=== PATIENT | male | born 1980 | race Caucasian/White ===

== ENCOUNTER 2019-02-07 19:11 | Emergency (ER) | payer MEDICARE ==
[~2019-02-07] VITALS: Ht 188 cm; Wt 111.3 kg
[2019-02-07 19:17] VITALS: Ht 188 cm; Wt 111.3 kg
[2019-02-07] MEDS ORDERED: VOLTAREN75 MG PO (20:43)
[2019-02-07] MEDS ORDERED: OMEPRAZOLE40 MG PO (20:43)
[2019-02-08 03:06] VITALS: BP 126/91
== END 2019-02-07 21:12 | disposition home or self-care (01) ==
LOC: D.ER 19:11
DX: S99.921A Unspecified injury of right foot, initial encounter (principal); W22.8XXA Striking against or struck by other objects, initial encounter; F17.210 Nicotine dependence, cigarettes, uncomplicated

== ENCOUNTER 2019-04-17 18:23 | Emergency (ER) | payer MEDICARE ==
[~2019-04-17] VITALS: Ht 188 cm; Wt 84.1 kg
[~2019-04-17 18:23] MED LIST: OMEPRAZOLE40 MG PO; VOLTAREN75 MG PO
[2019-04-17 19:09] VITALS: Ht 188 cm; Wt 84.1 kg
[2019-04-17 19:38] LABS: BASOPHILS 0.2 % (0-2); EOSINOPHILS 1.5 % (0-7); HEMOGLOBIN 17.5 g/dL (13.5-17.5); IMMATURE GRANULOCYTES 0.2 % (0-5); LYMPHOCYTES 40.4 % (15-50); MCH 31.1 pg (26.0-34.0); MCHC 35.7 g/dL (31.0-37.0); MONOCYTES 9.1 % (2-11); NEUTROPHILS 48.6 % (40-80); PLATELET COUNT 309 10x3/uL (130-400); RBC 5.63 10x6/uL (4.20-6.10); RDW 12.5 % (11.5-14.5); WBC 8.9 10x3/uL (4.8-10.8)
[2019-04-17 19:49] LABS: CALC OSMOLALITY 281 mosm/kg (275-300); CALCIUM 9.3 mg/dL (8.5-10.1); CARBON DIOXIDE 23.8 mmol/L (21.0-32.0); CHLORIDE - SERUM 105 mmol/L (98-107); CREATININE - SERUM 0.9 mg/dL (0.6-1.3); GLUCOSE 91 mg/dL (74-106); POTASSIUM - SERUM 4.3 mmol/L (3.5-5.1); SODIUM 141 mmol/L (136-145); UREA NITROGEN 15 mg/dL (7-18); eGFR NON AFRICAN AMERICAN > 90 mL/min (90-120)
[2019-04-17 19:53] LABS: ALBUMIN 3.8 g/dL (3.4-5.0); ALKALINE PHOSPHATASE 93 U/L (46-116); ALT (SGPT) 25 U/L (10-68); BILIRUBIN - TOTAL 0.46 mg/dL (0.2-1.3); MAGNESIUM - SERUM 2.1 mg/dL (1.8-2.4); PROTEIN - SERUM 7.3 g/dL (6.4-8.2)
[2019-04-17 20:15] LABS: APPEARANCE CLEAR (CLEAR); BILIRUBIN NEGATIVE (NEGATIVE); COLOR YELLOW (YELLOW); GLUCOSE NEGATIVE (NEGATIVE); KETONE NEGATIVE (NEGATIVE); NITRITE NEGATIVE (NEGATIVE); PROTEIN NEGATIVE (NEGATIVE); SPECIFIC GRAVITY 1.025 (1.005-1.020); UROBILINOGEN NORMAL (NORMAL)
[2019-04-17 20:25] LABS: UDS - AMPHET NEGATIVE QUAL (NEGATIVE); UDS - BARB NEGATIVE QUAL (NEGATIVE); UDS - BENZO NEGATIVE QUAL (NEGATIVE); UDS - COCAINE NEGATIVE QUAL (NEGATIVE); UDS - OPIATE NEGATIVE QUAL (NEGATIVE); UDS - PCP NEGATIVE QUAL (NEGATIVE); UDS - THC POSITIVE QUAL (NEGATIVE)
--- NOTE | 2019-04-17 20:47 | NUR ---
DR. DUPONT NOTIFIED AND SITTER ORDERED. SITTER AT BEDSIDE . NOTIFIED CHARGE NURSE AND ATTENDING IN REGARDS TO ASSESSMENT FINDINGS RESOURCES. RESOURCES GIVEN TO PT AND SAFETY PLAN INITIATED.
[2019-04-17 22:57] VITALS: BP 132/73
== END 2019-04-17 22:57 ==
LOC: D.ER 18:23
PROVIDERS: Family Medicine
DX: F32.9 Major depressive disorder, single episode, unspecified (principal); R45.851 Suicidal ideations

== ENCOUNTER 2019-05-30 09:18 | Emergency (ER) | payer MEDICARE ==
[~2019-05-30] VITALS: Ht 188 cm; Wt 115.0 kg
[2019-05-30 09:25] VITALS: BP 123/76; Ht 188 cm; Wt 115.0 kg
[2019-05-30 09:45] LABS: BASOPHILS 0.4 % (0-2); EOSINOPHILS 2.5 % (0-7); HEMATOCRIT 44.9 % (42.0-54.0); HEMOGLOBIN 15.7 g/dL (13.5-17.5); IMMATURE GRANULOCYTES 0.1 % (0-5); LYMPHOCYTES 37.5 % (15-50); MCH 30.6 pg (26.0-34.0); MCV 87.5 fL (80.0-100.0); MEAN PLATELET VOLUME 8.8 fL (7.4-10.4); MONOCYTES 5.6 % (2-11); NEUTROPHILS 53.9 % (40-80); PLATELET COUNT 288 10x3/uL (130-400); RBC 5.13 10x6/uL (4.20-6.10); RDW 13.1 % (11.5-14.5)
[2019-05-30 09:54] LABS: CALC OSMOLALITY 279 mosm/kg (275-300); CALCIUM 8.6 mg/dL (8.5-10.1); CARBON DIOXIDE 27.2 mmol/L (21.0-32.0); CHLORIDE - SERUM 104 mmol/L (98-107); CREATININE - SERUM 0.9 mg/dL (0.6-1.3); GLUCOSE 94 mg/dL (74-106); POTASSIUM - SERUM 4.2 mmol/L (3.5-5.1); SODIUM 140 mmol/L (136-145); UREA NITROGEN 14 mg/dL (7-18); eGFR NON AFRICAN AMERICAN > 90 mL/min (90-120)
[2019-05-30 10:00] LABS: ALBUMIN 3.6 g/dL (3.4-5.0); ALKALINE PHOSPHATASE 88 U/L (46-116); ALT (SGPT) 43 U/L (10-68); BILIRUBIN - TOTAL 0.44 mg/dL (0.2-1.3); MAGNESIUM - SERUM 1.9 mg/dL (1.8-2.4); PROTEIN - SERUM 7.1 g/dL (6.4-8.2)
[2019-05-30 10:30] LABS: APPEARANCE CLEAR (CLEAR); BILIRUBIN NEGATIVE (NEGATIVE); COLOR YELLOW (YELLOW); GLUCOSE NEGATIVE (NEGATIVE); KETONE NEGATIVE (NEGATIVE); NITRITE NEGATIVE (NEGATIVE); PROTEIN NEGATIVE (NEGATIVE); UROBILINOGEN NORMAL (NORMAL)
[2019-05-30 10:41] LABS: UDS - AMPHET NEGATIVE QUAL (NEGATIVE); UDS - BARB NEGATIVE QUAL (NEGATIVE); UDS - BENZO NEGATIVE QUAL (NEGATIVE); UDS - COCAINE NEGATIVE QUAL (NEGATIVE); UDS - OPIATE NEGATIVE QUAL (NEGATIVE); UDS - PCP NEGATIVE QUAL (NEGATIVE); UDS - THC POSITIVE QUAL (NEGATIVE)
--- NOTE | 2019-05-30 11:55 | NUR ---
PT IS A HIGH RISK PER ASSESSMENT. PT IS FLAT AND VERY WITHDRAWN. PT HAS HAD MULTIPLE ATTEMPTS OF SUICIDE THROUGHOUT HIS LIFE. PT HAS HAD MULTIPLE PSYCH PLACEMENTS WITH NO SUCCESS OF TREATMENT. PT DENIES HAVING A SUPPORT SYSTEM. RESOURCES GIVEN AND SAFETY PLAN INITIATED. SITTER ORDERED PER DR. DUPONT AND HE WILL NEED PSYCH PLACEMENT FOR SUICIDE RISK. PT IS IN AGREEMENT TO TREATMENT. PT WAS IN A SAFE ROOM AND BEING MONITORED UPON MY ARRIVAL. PT IN PAPERSCRUBS AND ALL BELONGINGS REMOVED FROM ROOM.
== END 2019-05-30 17:22 ==
LOC: D.ER 09:18
PROVIDERS: Emergency Medicine
DX: R45.851 Suicidal ideations (principal); F32.9 Major depressive disorder, single episode, unspecified